=== PATIENT | female | born 1975 | race Hispanic/Latino ===

== ENCOUNTER 2018-09-09 23:44 | Inpatient (IN) | payer MEDICAID ==
--- NOTE | 2018-09-10 00:21 | C.PDOC ---
History Of Present Illness 43-year-old female presents to the ED as a prescreen for alcohol detox. Patient reports history of non Hodgkins lymphoma and states she usually takes Methadone to manage her pain. Patient was unable to receive her usual dosage today and has been drinking alcohol all day to cope with the pain. Patient also reports history of biliary stent and occasionally experiences nausea and vomiting. Patient took a Zofran at home without relief. She currently reports nausea, but denies vomiting. Patient denies fever, chills, suicidal/homicidal ideation. Time Seen by Provider: 09/10/18 00:01 Chief Complaint (Nursing): Substance Abuse History Per: Patient History/Exam Limitations: no limitations Onset/Duration Of Symptoms: Hrs Current Symptoms Are (Timing): Still Present Suicide/Self Injury Attempted (Context): None Modifying Factor(s): Alcohol Associated Symptoms: denies: Suicidal Thoughts, Suicidal Plan Involuntary Hold By: None Recent travel outside of the [place]: No Additional History Per: Patient Past Medical History Reviewed: Historical Data, Nursing Documentation, Vital Signs Vital Signs: Last Vital Signs Temp 97.8 F 09/10/18 00:01 Pulse 84 09/10/18 00:01 Resp 22 09/10/18 00:01 BP 114/81 09/10/18 00:01 Pulse Ox 97 09/10/18 00:01 - Medical History PMH: Gall Bladder Disease (gallbladder removed + stent), Hiatal Hernia, Seizures Denies: Chronic Kidney Disease Surgical History: No Surg Hx Family History: States: Unknown Family Hx - Social History Hx Alcohol Use: Yes Hx Substance Use: Yes - Immunization History Hx Tetanus Toxoid Vaccination: No Hx Influenza Vaccination: Yes Hx Pneumococcal Vaccination: No Review Of Systems Constitutional: Negative for: Fever, Chills Gastrointestinal: Positive for: Nausea. Negative for: Vomiting Psych: Positive for: Other (prescreen for alcohol detox ). Negative for: Suicidal ideation Physical Exam - Physical Exam Appears: Non-toxic, No Acute Distress, Other (uncomfortable ) Skin: Normal Color, Warm, Dry Head: Atraumatic, Normacephalic Oral Mucosa: Moist Neck: Supple Chest: Symmetrical, No Deformity Cardiovascular: Rhythm Regular Respiratory: Normal Breath Sounds, No Rales, No Rhonchi, No Wheezing Gastrointestinal/Abdominal: Soft, No Tenderness, No Guarding, No Rebound Extremity: Normal ROM Neurological/Psych: Oriented x3, Normal Speech, Normal Cognition ED Course And Treatment O2 Sat by Pulse Oximetry: 97 (on RA) Pulse Ox Interpretation: Normal Progress Note: Bloodwork and urinalysis ordered and reviewed. Disposition - Disposition Disposition Time: 00:29 Condition: STABLE Forms: [facility] (Icelandic) - Clinical Impression Clinical Impression: Alcohol dependence - Scribe Statement The provider has reviewed the documentation as recorded by the Scribe (Nelsy Whiting) Provider Attestation: All medical record entries made by the Scribe were at my direction and personally dictated by me. I have reviewed the chart and agree that the record accurately reflects my personal performance of the history, physical exam, medical decision making, and the department course for this patient. I have also personally directed, reviewed, and agree with the discharge instructions and disposition. Physician Patient Turnover Patient Signed Over To: Ari Harvey Handoff Comments: pending crisis evaluation and medical clearance for detox admission.
[2018-09-10 00:31] LABS: BASO % 0.9 % (0.0-2.0); EOS # 0.1 K/uL (0.0-0.7); EOS % 2.2 % (0.0-4.0); HEMOGLOBIN 12.3 g/dL (11.0-16.0); LYMPH # 1.6 K/uL (1.0-4.3); LYMPH % 49.9 % (20.0-40.0); MEAN CELL VOLUME 102.8 fL (81.0-99.0); MEAN CORPUSCULAR HEMOGLOBIN 34.3 pg (27.0-31.0); MEAN CORPUSCULAR HGB CONC 33.4 g/dL (33.0-37.0); MEAN PLATELET VOLUME 8.4 fL (7.2-11.7); MONO # 0.3 K/uL (0.0-0.8); MONO % 8.3 % (0.0-10.0); NEUT # 1.3 K/uL (1.8-7.0); NEUT % 38.7 % (50.0-75.0); NRBC % 0.2 % (0.0-2.0); RBC 3.59 Mil/uL (3.80-5.20); RED CELL DISTRIBUTION WIDTH 16.6 % (11.5-14.5); WHITE BLOOD COUNT 3.3 K/uL (4.8-10.8)
[2018-09-10 00:38] LABS: SQUAMOUS EPITHIAL 16 /hpf (0-5); URINE BACTERIA MANY (<OCC); URINE BILIRUBIN NEGATIVE (NEGATIVE); URINE BLOOD NEGATIVE (NEGATIVE); URINE CALCIUM OXALATE CRYSTALS RARE /hpf (<OCC); URINE CLARITY SLIGHT-CLOUDY (Clear); URINE COLOR Amber (YELLOW); URINE GLUCOSE (UA) NORMAL (Normal); URINE LEUKOCYTE ESTERASE TRACE Leu/uL (Negative); URINE PROTEIN NEGATIVE (NEGATIVE)
[2018-09-10 00:39] LABS: HCG,QUALITATIVE URINE NEGATIVE (NEGATIVE)
[2018-09-10 00:56] LABS: ALB/GLOB RATIO 1.5 (1.0-2.1); ALBUMIN 4.1 g/dL (3.5-5.0); ALT/SGPT 212 U/L (9-52); AST/SGOT 211 U/L (14-36); BLOOD UREA NITROGEN 10 mg/dL (7-17); CALCIUM 9.2 mg/dl (8.6-10.4); GFR NON-AFRICAN AMERICAN > 60
[2018-09-10 01:05] LABS: BARBITURATES, UR NEGATIVE (NEGATIVE); BENZODIAZEPINES, UR NEGATIVE (NEGATIVE); OPIATES, UR NEGATIVE (NEGATIVE); PHENCYCLIDINE, UR NEGATIVE (NEGATIVE)
--- NOTE | 2018-09-10 05:39 | PCM.BM ---
<Maria Fernanda Quigley M - Last Filed: 09/10/18 05:38> Treatment Plan Problems - Problems identified on initial assessmt Knowledge Deficit: Alcohol Use Date Initiated: 09/10/18 Time Initiated: 05:39 Assessment reference: NA Status: Active Treatment assets and liabiliti Patient Assests: ADL independent Patient Liabilities: substance abuse, medical problems - Milieu Protocol Maintain good personal hygiene: daily Encourage regular showers, daily Remind patient to perform daily oral care, daily Assist patient to perform ADL's Conduct patient checks and document Observation sheet: Q15 minutes Maintain personal safety: every shift Educate patient to report safety concerns to staff, every shift Monitor environment for contraband/sharps Medication safety: Monitor for expected outcome, potential side effects: every shift, Assess barriers to learning: every shift, Assess readiness for medication education: every shift <Reshma Mckeon - Last Filed: 09/10/18 13:16> - Diagnosis (1) Alcohol dependence Status: Acute Interventions: 09/10/18 13:16 * Assess 7x/week regarding severity of withdrawal * Educate regarding risks, benefits, side effects and alternatives of medications * Use Motivational Interviewing for abstinence * Use CBT for relapse prevention * Medication management for withdrawal symptoms * Encourage medication assisted treatment *
[2018-09-10] MEDS ORDERED: Naproxen 550 mg Tab PO STA (05:41)
[2018-09-10] MEDS: Pantoprazole 20 mg EC Tab PO SCH (09:15)
[2018-09-10] MEDS: Multiple Vitamins Tab PO SCH (09:15)
[2018-09-10] MEDS: Methadone 40 mg Tab PO SCH (09:17)
--- NOTE | 2018-09-10 10:23 | PCM.PSYCH ---
Initial Psychiatric Evaluation - Initial Psychiatric Evaluation Type of Admission: Voluntary Legal Status: Capacity Chief Complaint (in patient's own words): I want to detox from alcohol History of Present Illness and Precipitating Events: Patient is a 43 year old female, currently residing with her eldest daughter while going through a divorce, employed by [employer] and currently on disability Patient reports an 8 month history of alcohol abuse, 2.5 pts daily following the initiation of her divorce from her . Patient has 3 children, 23yo(F), 18yo(M), and 11yo(F). Her eldest daughter lives with her following the sepFP Complete ration, and the 2 younger children spend time between both parent's houses. Patient reports increased stress from the divorce caused her to start drinking alcohol although she denies previous history of alcohol abuse in the past. Patient has also been on methadone 100mg BID as prescribed for pain management 2/2 her NHL which recurred 5 years ago. Patient is a private patient and gets her methadone from [facility]. Patient was found to be positive for alcohol last week, and her dose was decreased to 160mg daily with last dose being 09/07. Patient reports last drink yesterday prior to arrival, and currently complains of withdrawal symptoms including nausea, vomiting, diarrhea, diffuse abdominal pain. Patient denies history of drug or alcohol abuse, prior detox attempts or inpatient psych hospitalizations. PsychHx: anxiety, treated with Klonopin 1mg TID PMHx: Non-Hodgkin's Lymphoma FamPsychHx: Mom, alcohol abuse Current Medications: Active Medications Generic Name Dose Route Start Last Admin Trade Name Freq PRN Reason Stop Dose Admin Clonidine HCl 0.1 mg 09/10/18 06:48 Catapres PO Q4H PRN Symptoms of alcohol withdrawl Folic Acid 1 mg 09/10/18 10:00 09/10/18 09:15 Folic Acid PO 1 mg DAILY LILLY Administration Gabapentin 400 mg 09/10/18 10:00 09/10/18 09:15 Neurontin PO 400 mg TID LILLY Administration Ibuprofen 600 mg 09/10/18 06:55 Motrin Tab PO Q6 PRN Pain, moderate (4-7) Lorazepam 2 mg 09/10/18 12:00 Ativan PO 09/15/18 11:59 Q4 LILLY Taper Methadone HCl 160 mg 09/10/18 10:00 09/10/18 09:17 Methadose PO 160 mg DAILY LILLY Administration Multivitamins 1 tab 09/10/18 10:00 09/10/18 09:15 Hexavitamin PO 1 tab DAILY LILLY Administration Nicotine 1 patch 09/10/18 10:00 Nicoderm Cq TD DAILY LILLY Nitrofurantoin Macrocrystals 100 mg 09/10/18 10:00 09/10/18 09:15 Macrobid PO 09/14/18 20:00 100 mg Q12H LILLY Administration Protocol Ondansetron HCl 4 mg 09/10/18 08:38 Zofran Odt PO Q8H PRN Nausea/Vomiting Pantoprazole Sodium 20 mg 09/10/18 10:00 09/10/18 09:15 Protonix Ec Tab PO 20 mg DAILY LILLY Administration Thiamine HCl 100 mg 09/10/18 10:00 09/10/18 09:15 Vitamin B1 Tab PO 100 mg DAILY LILLY Administration Trazodone HCl 50 mg 09/10/18 06:48 Desyrel PO HS PRN Insomnia Past Psychiatric History - Past Psychiatric History Previous Treatment History: None Pertinent Medical Hx (Current Medical&Sleep Prob, Allergies): Allergies Allergy/AdvReac Type Severity Reaction Status Date / Time metoclopramide [From Reglan] Allergy Mild Verified 09/10/18 00:15 prochlorperazine Allergy Mild Verified 09/10/18 00:15 [From Compazine] promethazine [From Phenergan] Allergy Mild Verified 09/10/18 00:15 Esomeprazole Magnesium [Nexium] 20 mg PO DAILY 09/09/18 Folic Acid 1 mg PO DAILY 09/09/18 L. Rhamnosus GG/Inulin [Culturelle Probiotics Capsule] 1 each PO DAILY 09/09/18 Ondansetron ODT [Zofran ODT] 8 mg SL PRN PRN 09/09/18 Trimethobenzamide [Tigan] 300 mg PO TID PRN 09/09/18 Clonazepam 1 mg PO TID PRN 09/10/18 Dexlansoprazole [Dexilant] 30 mg PO DAILY 09/10/18 Gabapentin [Neurontin] 300 mg PO BID 09/10/18 Nitrofurantoin Monohyd/M-Cryst [Macrobid 100 mg Capsule] 100 mg PO BID 09/10/18 Ranitidine HCl [Zantac] 150 mg PO BID PRN 09/10/18 Thiamine Mononitrate [Optimum Vitamin B-1] 100 mg PO DAILY 09/10/18 chlordiazePOXIDE [Chlordiazepoxide HCl] 25 mg PO TID PRN 09/10/18 cloNIDine [clonidine HCl] 0.1 mg PO TID PRN 09/10/18 Review of Systems - Gastrointestinal Gastrointestinal: Abdominal Pain, Diarrhea, Loose Stools, Nausea, Vomiting - Psychiatric Psychiatric: Anxiety. absent: Depression, Hallucinations, Homicidal Ideation, Suicidal Ideation Mental Status Examination - Personal Presentation Personal Presentation: Looks stated age - Affect Affect: Constricted - Motor Activity Motor Activity: Calm - Reliability in Providing Information Reliability in Providing Information: Good - Speech Speech: Organized, Coherent - Mood Mood: Anxious - Formal Thought Process Formal Thought Process: No Impairment - Cognitive Functions Orientation: Person, Place, Situation, Time Sensorium: Alert Attention/Concentration: Attentive Judgement: Intact, as evidence by: Insight regarding need for hospitalization - Risk Risk: Withdrawal - Strength & Assets Inventory Strength & Assets Inventory: Intelligence, Family support, Employment status, Cooperative DSM 5 DX - DSM 5 DSM 5 Diagnosis: Alcohol withdrawal Opioid withdrawal Alcohol use disorder, severe Opioid abuse disorder, severe Generalized Anxiety disorder, moderate NHL, chronic UTI, acute - Recommended/Plan of Treatment Treatment Recommendations and Plan of Treatment: Taper with Ativan Continue methadone 160mg daily for NHL pain PRN medications Clonidine, Motrin, Zofran Hold home Klonopin Augmentation with Gabapentin Trazodone HS Macrobid for UTI All risks, benefits and treatment alternatives of medications discussed; patient understands and agrees Attend groups and activities Supportive therapy and psycho-education NV for abstinence CBT for relapse prevention Encourage MAT Refer to rehab or IOP, and self-help groups Teach healthy lifestyle methods(diet, exercise, meditation) Smoking cessation with Nicotine Patch Discussed with Dr. Mckeon -Mara Hernández, PGY-1 34 min Projected ELOS: 5 days - Smoking Cessation Smoking Cessation Initiated: Yes
[2018-09-11] MEDS: Multiple Vitamins Tab PO SCH (09:35)
[2018-09-11] MEDS: Pantoprazole 20 mg EC Tab PO SCH (09:35)
[2018-09-11] MEDS: Methadone 40 mg Tab PO SCH (09:37)
--- NOTE | 2018-09-11 11:58 | PCM.PYCHPN ---
Psychiatric Progress Note - Psychiatric Progress Note Patient seen today, length of contact: 17 min Patient Chief Complaint: "NOt well" Problems Identified/Issues Discussed: The pt is seen again, chart reviewed, and case is discussed with the team. The pt denies any side-effects from meds. Attends activities and groups, brief individual therapy provided Not ready for discharge due to ongoing symptoms and high relapse risk. After care discussed again. Medication Change: Yes (detox changes daily) Medical Record Reviewed: Yes Mental Status Examination - Cognitive Function Orientation: Person, Place, Situation, Time Memory: Intact Attention: WNL Concentration: Poor Association: WNL Fund of Knowledge: WNL - Mood Mood: Anxious - Affect Affect: Constricted - Speech Speech: Appropriate - Formal Thought Process Formal Thought Process: No Impairment - Suicidal Ideation Suicidal Ideation: No - Homicidal Ideation Homicidal Ideation: No Goal/Treatment Plan - Goal/Treatment Plan Need for Continued Stay: Discharge may exacerbated symptoms, Severe functional impairment Progress Toward Problem(s) and Goals/Treatment Plan: Taper with Ativan Continue methadone 160mg daily for NHL pain PRN medications Clonidine, Motrin, Zofran Hold home Klonopin Augmentation with Gabapentin Trazodone HS Macrobid for UTI All risks, benefits and treatment alternatives of medications discussed; patient understands and agrees Attend groups and activities Supportive therapy and psycho-education MS for abstinence CBT for relapse prevention Encourage MAT Refer to rehab or IOP, and self-help groups Teach healthy lifestyle methods(diet, exercise, meditation) Smoking cessation with Nicotine Patch
[2018-09-11 20:11] LABS: ALB/GLOB RATIO 1.6 (1.0-2.1); ALBUMIN 4.1 g/dL (3.5-5.0); ALT/SGPT 169 U/L (9-52); AST/SGOT 134 U/L (14-36); BLOOD UREA NITROGEN 8 mg/dL (7-17); CALCIUM 9.8 mg/dl (8.6-10.4); GFR NON-AFRICAN AMERICAN > 60; LIPASE 644 U/L (23-300)
[2018-09-12] MEDS: Pantoprazole 20 mg EC Tab PO SCH (09:27)
[2018-09-12] MEDS: Multiple Vitamins Tab PO SCH (09:28)
[2018-09-12] MEDS: Methadone 40 mg Tab PO SCH (09:29)
[2018-09-12] MEDS ORDERED: Magnesium Hydroxide Susp 30 ml UD PO ONE (18:44)
--- NOTE | 2018-09-12 22:43 | PCM.PYCHPN ---
Psychiatric Progress Note - Psychiatric Progress Note Patient Chief Complaint: "I still feel sick and having the shakes" Problems Identified/Issues Discussed: The pt is seen, chart reviewed, case is discussed with staff. The pt is compliant with medications and reports no side-effects. Symptoms are improving but needs more time to stabilize and to avoid relapse. Pt attends groups and activities. Support given, psycho-education provided. After care discussed. Medication Change: No Medical Record Reviewed: Yes Mental Status Examination - Cognitive Function Orientation: Person, Place, Situation, Time Attention: WNL Concentration: WNL Association: WNL Fund of Knowledge: WNL - Mood Mood: Depressed, Anxious - Affect Affect: Constricted - Speech Speech: Appropriate - Formal Thought Process Formal Thought Process: No Impairment - Suicidal Ideation Suicidal Ideation: No - Homicidal Ideation Homicidal Ideation: No Goal/Treatment Plan - Goal/Treatment Plan Need for Continued Stay: Remain at risks for inpatient hospitalization, Discharge may exacerbated symptoms Progress Toward Problem(s) and Goals/Treatment Plan: Continue medications Support and psychoeducation daily Attend groups and activities daily Individual therapy After care planning by KAYLEE and the team Estimated Date of D/C: 09/14/18 - Smoking Cessation Smoking Cessation Initiated: Yes
[2018-09-13] MEDS: Multiple Vitamins Tab PO SCH (09:11)
[2018-09-13] MEDS: Pantoprazole 20 mg EC Tab PO SCH (09:11)
[2018-09-13] MEDS: Methadone 40 mg Tab PO SCH (09:12)
[2018-09-13] MEDS ORDERED: Magnesium Hydroxide Susp 30 ml UD PO ONE (16:00)
[2018-09-14] MEDS: Methadone 40 mg Tab PO SCH (09:20)
[2018-09-14] MEDS: Multiple Vitamins Tab PO SCH (09:21)
[2018-09-14] MEDS: Pantoprazole 20 mg EC Tab PO SCH (09:22)
--- NOTE | 2018-09-14 10:54 | PCM.PYCHPN ---
Psychiatric Progress Note - Psychiatric Progress Note Patient seen today, length of contact: 18 min Patient Chief Complaint: "NOt well" Problems Identified/Issues Discussed: The pt is seen again, chart reviewed, and case is discussed with the team. The pt denies any side-effects from meds. Attends activities and groups, brief individual therapy provided Not ready for discharge due to ongoing symptoms and high relapse risk. After care discussed again. Medication Change: Yes (detox changes daily) Medical Record Reviewed: Yes Mental Status Examination - Cognitive Function Orientation: Person, Place, Situation, Time Memory: Intact Attention: WNL Concentration: Poor Association: WNL Fund of Knowledge: WNL - Mood Mood: Anxious - Affect Affect: Constricted - Speech Speech: Appropriate - Formal Thought Process Formal Thought Process: No Impairment - Suicidal Ideation Suicidal Ideation: No - Homicidal Ideation Homicidal Ideation: No Goal/Treatment Plan - Goal/Treatment Plan Need for Continued Stay: Discharge may exacerbated symptoms, Severe functional impairment Progress Toward Problem(s) and Goals/Treatment Plan: Taper with Ativan Continue methadone 160mg daily for NHL pain PRN medications Clonidine, Motrin, Zofran Hold home Klonopin Augmentation with Gabapentin Trazodone HS Macrobid for UTI All risks, benefits and treatment alternatives of medications discussed; patient understands and agrees Attend groups and activities Supportive therapy and psycho-education MO for abstinence CBT for relapse prevention Encourage MAT Refer to rehab or IOP, and self-help groups Teach healthy lifestyle methods(diet, exercise, meditation) Smoking cessation with Nicotine Patch Estimated Date of D/C: 09/14/18
[2018-09-14] MEDS ORDERED: Magnesium Hydroxide Susp 30 ml UD PO ONE (12:50)
--- NOTE | 2018-09-15 08:51 | PCM.PYCHDC ---
Mental Status Examination - Mental Status Examination Orientation: Person Discharge Summary - Discharge Note Consultations:: List each consultation separately and include: 1. Reason for request. 2. Findings. 3. Follow-up Summary of Hospital Course include:: 1. Description of specific treatment plan utilized for patients during their course of treatmen. 2. Summarize the time- course for resolution of acute symptoms and/or regressed behaviors. 3. Describe issues identified and worked on during hospitalization. 4. Describe medication utilized. 5. Describe medical problems identified and treated. 6. Reassessment of suicide risk Summary of Hospital Course: [facility] - Diagnosis (1) Alcohol dependence Current Visit: Yes Status: Acute - Final Diagnosis (DSM 5) Condition upon Discharge: STABLE Disposition: HOME/ ROUTINE Follow-up Treatment Plan: Taper with Ativan Continue methadone 160mg daily for NHL pain PRN medications Clonidine, Motrin, Zofran Hold home Klonopin Augmentation with Gabapentin Trazodone HS Macrobid for UTI All risks, benefits and treatment alternatives of medications discussed; patient understands and agrees Attend groups and activities Supportive therapy and psycho-education AR for abstinence CBT for relapse prevention Encourage MAT Refer to rehab or IOP, and self-help groups Teach healthy lifestyle methods(diet, exercise, meditation) Smoking cessation with Nicotine Patch Prescriptions/Medication Reconciliation: Gabapentin [Neurontin] 400 mg PO TID #90 cap Nitrofurantoin Macrocrystals [Macrobid] 100 mg PO Q12H #6 cap Pantoprazole [Protonix EC Tab] 20 mg PO DAILY #30 ect traZODone [Desyrel] 100 mg PO HS PRN #30 tab PRN Reason: Insomnia
[2018-09-15] MEDS: Multiple Vitamins Tab PO SCH (09:59)
[2018-09-15] MEDS: Methadone 40 mg Tab PO SCH (10:00)
[2018-09-15] MEDS: Pantoprazole 20 mg EC Tab PO SCH (10:00)
[2018-09-15 10:28] VITALS: BP 120/79; PULSE 104; RESP 20; TEMP 97.7; O2SAT 95
== END 2018-09-15 10:00 | disposition home or self-care (01) | DRG 744 ==
LOC: C.ER 23:44 → OBSVTOIN 09-10 05:00 → C.7D 09-10 05:00
PROC: GZ56ZZZ Individual Psychotherapy, Supportive (ICD-10-PCS; principal; 2018-09-10)
DX: F10.230 Alcohol dependence with withdrawal, uncomplicated (principal); N39.0 Urinary tract infection, site not specified; F11.23 Opioid dependence with withdrawal; Y90.8 Blood alcohol level of 240 mg/100 ml or more; F41.1 Generalized anxiety disorder; Z85.72 Personal history of non-Hodgkin lymphomas

== ENCOUNTER 2018-10-09 13:40 | Inpatient (IN) | payer MEDICAID ==
--- NOTE | 2018-10-09 15:08 | C.PDOC ---
History Of Present Illness 43 y/o female w/ hx of etoh abuse pt presents to the ER requesting detox for alcohol. Pt reports her last drink was this morning. She notes she does not feel like she is withdrawing currently. She denies any fall or trauma. She denies any headache of neck stiffness. She denies any GI or issues. No co-ingestion besides cocaine. No other physical complaints. Pt denies SI/HI and any other complaints or associated sx at this time. Time Seen by Provider: 10/09/18 15:08 Chief Complaint (Nursing): Substance Abuse History Per: Patient History/Exam Limitations: no limitations Onset/Duration Of Symptoms: Days Current Symptoms Are (Timing): Still Present Modifying Factor(s): Alcohol Past Medical History Reviewed: Historical Data, Nursing Documentation, Vital Signs Vital Signs: Last Vital Signs Temp 99.5 F 10/09/18 13:55 Pulse 87 10/09/18 13:55 Resp 20 10/09/18 13:55 BP 118/85 10/09/18 13:55 Pulse Ox 98 10/09/18 13:55 Primary Care Provider: Non [facility] Provider, - Medical History PMH: Gall Bladder Disease (gallbladder removed + stent), Hiatal Hernia, Seizures - [facility] INDIVIDUAL PSYCHOTHERAPY, SUPPORTIVE (09/10/18) Family History: States: Unknown Family Hx - Social History Hx Alcohol Use: Yes Hx Substance Use: No - Immunization History Hx Tetanus Toxoid Vaccination: No Hx Influenza Vaccination: Yes Hx Pneumococcal Vaccination: No Review Of Systems Constitutional: Negative for: Fever, Chills, Sweats, Weakness, Malaise, Weight loss, Other Eyes: Negative for: Pain, Vision Change, Eyelid Inflammation ENT: Negative for: Ear Pain, Ear Discharge, Nose Pain, Nose Discharge, Nose Congestion, Mouth Pain, Mouth Swelling, Throat Pain Cardiovascular: Negative for: Palpitations, Paroxysmal Noc. Dyspnea, Edema Respiratory: Negative for: Cough, Shortness of Breath, Hemoptysis, SOB with Excertion, Pleuritic Pain Gastrointestinal: Negative for: Nausea, Vomiting, Abdominal Pain, Diarrhea, Constipation, Melena, Hematochezia, Hematemesis Genitourinary: Negative for: Dysuria, Incontinence, Hematuria, Vaginal Discharge, Vaginal Bleeding Musculoskeletal: Negative for: Neck Pain, Shoulder Pain Skin: Negative for: Rash, Lesions Neurological: Negative for: Weakness, Headache Psych: Negative for: Anxiety, Depression, Suicidal ideation, Other (HI) Physical Exam - Physical Exam Appears: Well, Non-toxic, No Acute Distress Skin: Warm, Dry Head: Atraumatic, Normacephalic Eye(s): bilateral: Normal Inspection, PERRL, EOMI Ear(s): Bilateral: Normal Nose: Normal Oral Mucosa: Moist Tongue: Normal Appearing Lips: Normal Appearing Gingiva: Normal Appearing Throat: Normal, No Erythema, No Exudate Neck: Normal, Normal ROM, Trachea Midline, No Midline Cervical Tenderness, Supple, Other (no meningeal signs -negative kernig's and brudzinki's) Lymphatic: Normal Exam Chest: Symmetrical Cardiovascular: Rhythm Regular, No Friction Rub Respiratory: No Rales, No Rhonchi, No Stridor, No Wheezing Gastrointestinal/Abdominal: Normal Exam, Soft, No Tenderness, No Distention, No Rebound Back: Normal Inspection, No CVA Tenderness, No Vertebral Tenderness Extremity: Normal ROM, No Tenderness Extremity: Bilateral: Atraumatic, Hips Non-Tender, Normal Color And Temperature, Normal ROM Pulses: Left Dorsalis Pedis: Normal (2+), Right Dorsalis Pedis: Normal (2+) Neurological/Psych: Oriented x3, Normal Speech, Normal Cognition Gait: Steady ED Course And Treatment - Laboratory Results Result Diagrams: 10/09/18 15:45 10/09/18 15:45 O2 Sat by Pulse Oximetry: 98 (RA) Pulse Ox Interpretation: Normal Medical Decision Making Medical Decision Making: Impression: 43 y/o female pt presents to the ER requesting detox for alcohol. No physical complaints. No co-ingestion other than cocaine. No SI or HI. Plans: -- chem labs -- blood work 1641 labs reviewed, unremarkable medically clear 1707 accepted by [employer] service pt in nad, agreeable to plan no signs of withdrawal Disposition - Disposition Disposition: HOSPITALIZED Disposition Time: 17:07 Condition: STABLE - Clinical Impression Clinical Impression: Cocaine abuse, Alcohol abuse - Scribe Statement The provider has reviewed the documentation as recorded by the Florina Sanchez Do Provider Attestation: All medical record entries made by the Savageibe were at my direction and personally dictated by me. I have reviewed the chart and agree that the record accurately reflects my personal performance of the history, physical exam, medical decision making, and the department course for this patient. I have also personally directed, reviewed, and agree with the discharge instructions and disposition.
[2018-10-09 15:45] LABS: SQUAMOUS EPITHIAL 10 /hpf (0-5); URINE BACTERIA RARE (<OCC); URINE BILIRUBIN NEGATIVE (NEGATIVE); URINE BLOOD NEGATIVE (NEGATIVE); URINE CLARITY Hazy (Clear); URINE COLOR Yellow (YELLOW); URINE GLUCOSE (UA) NORMAL (Normal); URINE LEUKOCYTE ESTERASE TRACE Leu/uL (Negative); URINE PROTEIN NEGATIVE (NEGATIVE)
[2018-10-09 15:51] LABS: BASO % 0.9 % (0.0-2.0); EOS # 0.1 K/uL (0.0-0.7); HEMOGLOBIN 11.5 g/dL (11.0-16.0); LYMPH # 1.1 K/uL (1.0-4.3); LYMPH % 31.8 % (20.0-40.0); MEAN CORPUSCULAR HEMOGLOBIN 34.1 pg (27.0-31.0); MEAN CORPUSCULAR HGB CONC 34.1 g/dL (33.0-37.0); MEAN PLATELET VOLUME 7.6 fL (7.2-11.7); MONO # 0.3 K/uL (0.0-0.8); MONO % 7.9 % (0.0-10.0); NEUT % 57.4 % (50.0-75.0); NRBC % 0.1 % (0.0-2.0); RBC 3.38 Mil/uL (3.80-5.20); RED CELL DISTRIBUTION WIDTH 16.1 % (11.5-14.5); WHITE BLOOD COUNT 3.5 K/uL (4.8-10.8)
[2018-10-09 15:54] LABS: MEAN CELL VOLUME 100.1 fL (81.0-99.0)
[2018-10-09 16:07] LABS: ACETAMINOPHEN < 10.0 ug/mL (10.0-30.0); SALICYLATE < 1.0 {null, mg/dL 1}
[2018-10-09 16:08] LABS: ALB/GLOB RATIO 1.5 (1.0-2.1); ALBUMIN 4.1 g/dL (3.5-5.0); ALT/SGPT 70 U/L (9-52); AST/SGOT 108 U/L (14-36); BLOOD UREA NITROGEN 7 mg/dL (7-17); CALCIUM 9.2 mg/dl (8.6-10.4); GFR NON-AFRICAN AMERICAN > 60
[2018-10-09 16:16] LABS: BARBITURATES, UR NEGATIVE (NEGATIVE); OPIATES, UR NEGATIVE (NEGATIVE); PHENCYCLIDINE, UR NEGATIVE (NEGATIVE)
[2018-10-09 16:21] LABS: BENZODIAZEPINES, UR POSITIVE (NEGATIVE)
--- NOTE | 2018-10-09 17:53 | PCM.BM ---
<Prasad Guillen - Last Filed: 10/09/18 17:50> Treatment Plan Problems - Problems identified on initial assessmt knowledge deficit:alcohol use Date Initiated: 10/09/18 Time Initiated: 17:51 Assessment reference: NA Status: Active ineffective family coping:compromised Date Initiated: 10/09/18 Time Initiated: 17:53 Assessment reference: NA Status: Active low motivation to change Date Initiated: 10/09/18 Time Initiated: 17:54 Assessment reference: NA Status: Active Treatment assets and liabiliti Patient Assests: cooperative, ADL independent, cognitively intact Patient Liabilities: substance abuse, medical problems - Milieu Protocol Maintain good personal hygiene: daily Encourage regular showers, daily Remind patient to perform daily oral care, daily Assist patient to perform ADL's Conduct patient checks and document Observation sheet: Q15 minutes Maintain personal safety: every shift Educate patient to report safety concerns to staff, every shift Monitor environment for contraband/sharps Medication safety: Monitor for expected outcome, potential side effects: every shift, Assess barriers to learning: every shift, Assess readiness for medication education: every shift <Reshma Mckeon - Last Filed: 10/13/18 12:51> - Diagnosis (1) Alcohol dependence Status: Acute Interventions: 10/13/18 12:51 * Assess 7x/week regarding severity of withdrawal * Educate regarding risks, benefits, side effects and alternatives of medications * Use Motivational Interviewing for abstinence * Use CBT for relapse prevention * Medication management for withdrawal symptoms * Encourage medication assisted treatment *
[2018-10-10] MEDS: Methadone 40 mg Tab PO SCH ×2 (12:04→21:27)
[2018-10-10] MEDS: Multiple Vitamins Tab PO SCH (14:09)
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
[2018-10-11] MEDS: Multiple Vitamins Tab PO SCH (09:25)
[2018-10-11] MEDS: Methadone 40 mg Tab PO SCH ×2 (09:26→21:09)
--- NOTE | 2018-10-11 18:46 | PCM.PYCHPN ---
Psychiatric Progress Note - Psychiatric Progress Note Patient seen today, length of contact: 16 Mins Patient Chief Complaint: "I want to get treatment" Problems Identified/Issues Discussed: The pt is seen, chart reviewed, case is discussed with staff. The pt is compliant with medications and reports no side-effects. Reports that she is very anxious as she has not been able to get in touch with her daughter Symptoms are improving but needs more time to stabilize and to avoid relapse, states she is having cravings. Pt attends groups and activities. Support given, psycho-education provided. After care discussed. Medication Change: Yes (Start Gapanetin 300 TID) Medical Record Reviewed: Yes Mental Status Examination - Cognitive Function Orientation: Person, Place, Situation, Time Memory: Intact Attention: WNL Concentration: WNL - Mood Mood: Depressed, Anxious - Affect Affect: Constricted, Depressed - Speech Speech: Appropriate - Formal Thought Process Formal Thought Process: No Impairment - Suicidal Ideation Suicidal Ideation: No - Homicidal Ideation Homicidal Ideation: No Goal/Treatment Plan - Goal/Treatment Plan Progress Toward Problem(s) and Goals/Treatment Plan: Start Gapabentin 300mg TID - Alcohol cravings Continue the rest of the medications Support and psychoeducation daily Attend groups and activities daily Individual therapy After care planning by KAYLEE and the team - Smoking Cessation Smoking Cessation Initiated: Yes
[2018-10-12] MEDS: Multiple Vitamins Tab PO SCH (09:28)
[2018-10-12] MEDS: Methadone 40 mg Tab PO SCH ×2 (09:28→21:08)
[2018-10-12] MEDS: Pantoprazole 20 mg EC Tab PO SCH (12:04)
[2018-10-13 08:48] VITALS: RESP 18
[2018-10-13] MEDS: Pantoprazole 20 mg EC Tab PO SCH (09:28)
[2018-10-13] MEDS: Multiple Vitamins Tab PO SCH (09:28)
[2018-10-13] MEDS: Methadone 40 mg Tab PO SCH ×2 (10:28→21:29)
--- NOTE | 2018-10-13 12:51 | PCM.PYCHPN ---
Psychiatric Progress Note - Psychiatric Progress Note Patient seen today, length of contact: 20 min Patient Chief Complaint: "I am not as bad" Problems Identified/Issues Discussed: The pt is seen, chart reviewed, case discussed with staff. The pt is compliant with medications and reports no side-effects. Symptoms are improving but needs more time to stabilize. Pt attends groups and activities. Support given, psycho-education provided. After care discussed. She asked to leave early due to a court on food stamps and car repair but then agreed to completeher detox Medication Change: Yes (detox changes daily) Medical Record Reviewed: Yes Mental Status Examination - Cognitive Function Orientation: Person, Place, Situation, Time Memory: Intact Attention: WNL Concentration: WNL Fund of Knowledge: WNL - Mood Mood: Depressed, Anxious - Affect Affect: Constricted, Depressed - Speech Speech: Appropriate - Formal Thought Process Formal Thought Process: No Impairment - Suicidal Ideation Suicidal Ideation: No - Homicidal Ideation Homicidal Ideation: No Goal/Treatment Plan - Goal/Treatment Plan Need for Continued Stay: Discharge may exacerbated symptoms, Severe functional impairment Progress Toward Problem(s) and Goals/Treatment Plan: Continue medications Support and psychoeducation daily Attend groups and activities daily After care planning by counselors Estimated Date of D/C: 10/14/18
[2018-10-13] MEDS ORDERED: Benzocaine 7.5% 5.1 GM TUBE MM PRN (21:19)
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
[2018-10-14] MEDS: Pantoprazole 20 mg EC Tab PO SCH (09:13)
[2018-10-14] MEDS: Multiple Vitamins Tab PO SCH (09:13)
[2018-10-14] MEDS: Methadone 40 mg Tab PO SCH (09:13)
[2018-10-14 10:52] VITALS: BP 106/68; PULSE 75; TEMP 98.5; O2SAT 98
== END 2018-10-14 11:01 | disposition home or self-care (01) | DRG 745 ==
LOC: C.ER 13:40 → C.7D 17:06
PROVIDERS: ADMIT Psychiatry & Neurology Psychiatry; ATTEND Psychiatry & Neurology Psychiatry
PROC: GZ56ZZZ Individual Psychotherapy, Supportive (ICD-10-PCS; principal; 2018-10-09)
DX: F10.230 Alcohol dependence with withdrawal, uncomplicated (principal); F14.10 Cocaine abuse, uncomplicated; Y90.4 Blood alcohol level of 80-99 mg/100 ml; F17.200 Nicotine dependence, unspecified, uncomplicated; F41.1 Generalized anxiety disorder; Z85.72 Personal history of non-Hodgkin lymphomas; F11.23 Opioid dependence with withdrawal